=== PATIENT | male | born 1950 | race Caucasian/White ===

== ENCOUNTER → 2021-01-13 | Outpatient (CLI) | payer MEDICARE, MEDICAID | END | disposition home or self-care (01) | LOC: NPLAB 10:38 | PROVIDERS: ATTEND Family Medicine | DX: U07.1 COVID-19 (principal) | CPT/HCPCS: 87633 ==

== ENCOUNTER → 2023-04-01 | Outpatient (CLI) | payer MEDICARE, MEDICAID ==
[2023-04-01 11:50] LABS: CORO 229E NotDetected (NotDetected); CORO HKU1 NotDetected (NotDetected); CORO OC43 NotDetected (NotDetected)
[2023-04-01 11:52] LABS: RHINOVIRUS/ ENTEROVIRUS NotDetected (NotDetected); SARS CoV 2 NotDetected (NotDetected)
== END | disposition home or self-care (01) ==
LOC: NPLAB 10:51
PROVIDERS: ATTEND Family Medicine
DX: R50.9 Fever, unspecified (principal); R09.81 Nasal congestion; Z20.822 Contact with and (suspected) exposure to COVID-19
CPT/HCPCS: 87637

== ENCOUNTER → 2023-04-28 | Outpatient (CLI) | payer MEDICARE, MEDICAID ==
[2023-04-28 20:29] LABS: ALBUMIN(ML) 3.6 g/dL (3.4-5.0); ALBUMIN/GLOBULIN RATIO 0.857; ANION GAP 14.2; BUN/CREATININE RATIO 22.72 (10.0-20.0); CALCIUM 9.1 mg/dL (8.4-10.5); CARBON DIOXIDE 27.1 mmol/L (20.0-32); CREATININE SERUM 0.88 mg/dL (0.59-1.40); EST GFR, NON-AA 85.1 (>/=60); POTASSIUM 4.3 mmol/L (3.6-5.2)
[2023-04-28 20:31] LABS: HEMATOCRIT(ML) 45.8 % (37.0-53.0); HEMOGLOBIN 15.4 g/dL (13.9-16.3); MEAN CORP HGB 30.7 pg (26-34); MEAN CORP HGB CONCENTRATION 33.6 g/dL (33-36.5); MEAN CORP VOLUME 91.4 fL (78-100); RED BLOOD CELL 5.01 10^6/uL (4.50-5.90); RED CELL DISTRIBUTION WIDTH 13.3 % (11.5-14.5); WHITE BLOOD CELL 7.2 10^3/uL (4.5-11.0)
== END | disposition home or self-care (01) ==
LOC: NPLAB 19:13
PROVIDERS: ATTEND Family Medicine
DX: I82.402 Acute embolism and thrombosis of unspecified deep veins of left lower extremity (principal); M62.50 Muscle wasting and atrophy, not elsewhere classified, unspecified site; Z79.899 Other long term (current) drug therapy
CPT/HCPCS: 36415; 80053; 82306; 83036; 84443; 85027

== ENCOUNTER → 2023-07-08 | Outpatient (CLI) | payer MEDICARE, MEDICAID ==
[2023-07-08 11:58] LABS: HEMATOCRIT(ML) 41.3 % (37.0-53.0); HEMOGLOBIN 13.6 g/dL (13.9-16.3); MEAN CORP HGB 30.5 pg (26-34); MEAN CORP HGB CONCENTRATION 32.9 g/dL (33-36.5); MEAN CORP VOLUME 92.6 fL (78-100); RED BLOOD CELL 4.46 10^6/uL (4.50-5.90); RED CELL DISTRIBUTION WIDTH 13.6 % (11.5-14.5); WHITE BLOOD CELL 7.6 10^3/uL (4.5-11.0)
[2023-07-08 12:22] LABS: ALBUMIN(ML) 2.7 g/dL (3.4-5.0); ALBUMIN/GLOBULIN RATIO 0.658; ANION GAP 10.2; BUN/CREATININE RATIO 21.51 (10.0-20.0); CALCIUM 9.1 mg/dL (8.4-10.5); CARBON DIOXIDE 28.7 mmol/L (20.0-32); CREATININE SERUM 0.79 mg/dL (0.59-1.40); EST GFR, NON-AA 96.1 (>/=60); POTASSIUM 3.9 mmol/L (3.6-5.2)
== END | disposition home or self-care (01) ==
LOC: NPLAB 11:32
PROVIDERS: ATTEND Family Medicine
DX: I10 Essential (primary) hypertension (principal); M62.81 Muscle weakness (generalized); Z79.899 Other long term (current) drug therapy
CPT/HCPCS: 36415; 80053; 83036; 83880; 85027